=== PATIENT | female | born 2000 | race Caucasian/White ===

== ENCOUNTER → 2022-05-11 | Outpatient (CLI) | payer OTHER | LOC: CARD 11:20 | PROVIDERS: ATTEND Family Medicine | DX: R53.82 Chronic fatigue, unspecified (principal); R25.1 Tremor, unspecified | CPT/HCPCS: 93306 ==

== ENCOUNTER → 2022-07-11 | Outpatient (CLI) | payer OTHER ==
--- NOTE | 2022-07-11 15:20 | Diagnostic Imaging Report ---
EXAMINATION: Lumbar spine radiographs, 5 views. COMPARISON: None. HISTORY: 21-year-old female, acute low back pain. 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 There is no pars interarticularis defect. The alignment of the lumbar spine is unremarkable. The lumbar disc heights are well preserved. There is no identified compression deformity or fracture. IMPRESSION: 1. 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 2. Additional radiographic evaluation of the lumbar spine is unremarkable. Dictated by: Dictated on workstation # [id number]
== END ==
LOC: RAD FS 10:57
PROVIDERS: ATTEND Nurse Practitioner
DX: M54.50 Low back pain, unspecified (principal)
CPT/HCPCS: 72110